=== PATIENT | female | born 1960 | race African-American/Black ===

== ENCOUNTER 2025-05-30 22:29 | Inpatient (IN) | payer MEDICAID ==
[~2025-05-30] VITALS: Ht 160 cm; Wt 59.4 kg
[~2025-05-30 22:29] MED LIST: BENA10TA
[2025-05-30 22:34] VITALS: O2SAT 100
[2025-05-31 00:59] LABS: BASOPHILS % 0.9 % (0.0-2.0); EOSINOPHILS % 1.9 % (0.0-5.0); HEMATOCRIT. 36.9 % (36.0-48.0); HEMOGLOBIN. 12.3 g/dL (12.0-16.0); LYMPHOCYTES % 16.5 % (20.0-50.0); MEAN PLATELET VOLUME 10.5 fl (7.4-10.4); MONOCYTES % 8.3 % (2.0-8.0); NEUTROPHILS % 72.4 % (40.0-76.0); PLATELET 175 x1000/uL (130-400); RED BLOOD CELL COUNT 4.22 mill/uL (4.2-5.4); RED CELL DISTRIBUTION WIDTH 13.7 % (11.6-14.6)
[2025-05-31 01:13] LABS: CREATININE 1.3 mg/dL (0.6-1.0)
[2025-05-31 01:14] LABS: UREA NITROGEN BLOOD 19 mg/dL (9-23)
[2025-05-31 01:15] LABS: ASPARTATE AMINOTRANSFERASE 12 IU/L (<34)
[2025-05-31 01:16] LABS: BILIRUBIN DIRECT 0.1 mg/dL (<=3.0); BILIRUBIN TOTAL 0.4 mg/dL (0.1-1.0); PROTEIN TOTAL 6.9 g/dL (6.0-8.3)
[2025-05-31 02:21] LABS: CLARITY URINE CLOUDY (CLEAR); COLOR URINE DARK YELLOW (YELLOW); GLUCOSE URINE 1+ (NEGATIVE); KETONES URINE 1+ (NEGATIVE); LEUKOCYTE ESTERASE URINE 2+ (NEGATIVE); NITRITE URINE NEGATIVE (NEGATIVE); OCCULT BLOOD URINE NEGATIVE (NEGATIVE); PH URINE 5.5 (4.5-8.0); PROTEIN URINE 1+ (NEGATIVE); SPECIFIC GRAVITY URINE 1.023 (1.005-1.030); UROBILINOGEN URINE 1.0 E.U./dL (0.2-1.0)
[2025-05-31 02:48] LABS: *AMPHETAMINES SCREEN URINE PRESUMPTIVE POSITIVE (NEGATIVE); *BARBITURATES SCREEN URINE NEGATIVE (NEGATIVE); *BENZODIAZEPINES SCREEN URINE NEGATIVE (NEGATIVE); *COCAINE SCREEN URINE NEGATIVE (NEGATIVE); METHADONE URINE SCREEN NEGATIVE (NEGATIVE); OPIATES URINE SCREEN NEGATIVE (NEGATIVE)
[2025-05-31 02:49] LABS: CANNABINOID URINE SCREEN NEGATIVE (NEGATIVE); ECSTASY MDMA SCREEN URINE NEGATIVE (NEGATIVE); PHENCYCLIDINE URINE SCREEN NEGATIVE (NEGATIVE)
[2025-05-31 03:15] VITALS: BP 143/82; PULSE 60; RESP 18; TEMP 36.3068
[2025-05-31 03:17] LABS: ETHANOL BLOOD < 10 mg/dL (<10)
[2025-05-31 04:00] VITALS: BP 157/87; PULSE 61; RESP 17; TEMP 36.2; O2SAT 97
[2025-05-31 04:58] LABS: BACTERIA URINE 2+; SQUAMOUS EPITHELIAL CELL URINE 2+ /lpf (RARE/1+)
[2025-05-31 04:59] LABS: CALCIUM OXALATE CRYSTALS URINE 1+ /lpf; RBC URINE NONE SEEN /hpf (0-2); WBC URINE 50-100 /hpf (0-2); YEAST URINE 2+
[2025-05-31] MEDS ORDERED: CLONIDINE 0.1MG TABLET PO PRN (05:30)
[2025-05-31] MEDS ORDERED: HALOPERIDOL LACTATE 5MG/ML VIAL IM PRN (05:30)
[2025-05-31] MEDS ORDERED: DEXTROSE 50% WATER 50ML SYRINGE IV PRN (05:30)
[2025-05-31] MEDS: BLOOD SUGAR DIAGNOSTIC STRIP TEST SCH (06:40)
[2025-05-31] MEDS: INSULIN LISPRO 100 UNITS/ML SUBCUT SCH (06:48)
[2025-05-31] MEDS ORDERED: MAGNESIUM/ALUMINUM HYDROXIDE/SIMETHICONE 30ML UDC PO PRN (08:15)
[2025-05-31] MEDS ORDERED: HYDROCODONE/ACETAMINOPHEN 5/325MG TABLET PO PRN (08:15)
[2025-05-31] MEDS ORDERED: ACETAMINOPHEN 325MG TABLET PO PRN (08:15)
[2025-05-31] MEDS ORDERED: ONDANSETRON HCL 4MG/2ML INJ IV PRN (08:15)
[2025-05-31] MEDS: PANTOPRAZOLE SODIUM 40 MG/VIAL IV SCH (10:26)
[2025-05-31] MEDS: ENOXAPARIN 40MG/0.4ML SYR SUBCUT SCH (10:26)
[2025-05-31] MEDS: CEFTRIAXONE 1GM/50ML 50 ML IV SCH (10:27)
[2025-05-31] MEDS: SODIUM CHLORIDE 0.9% 1,000 ML IV SCH (10:28)
[2025-05-31] MEDS: MVI, ADULT NO.1 10 ML, FOLIC ACID 1 MG, THIAMINE HCL 100 MG in SODIUM CHLORIDE 0.9% 1,0... IV SCH (10:29)
[2025-05-31] MEDS ORDERED: CEFTRIAXONE 1GM/50ML 50 ML IV SCH (13:15)
[2025-05-31] MEDS: POTASSIUM CHLORIDE 20MEQ TABLET SR PO NR (13:47)
[2025-05-31 16:00] VITALS: BP 188/102; PULSE 64; RESP 17; TEMP 36.2; O2SAT 99
[2025-05-31] MEDS: CLONIDINE 0.1MG TABLET PO PRN (18:01)
[2025-05-31 20:00] VITALS: BP 135/83; PULSE 62; RESP 18; TEMP 36.3; O2SAT 99
[2025-05-31] MEDS ORDERED: ZOLPIDEM TARTRATE 5MG TABLET PO PRN (21:00)
[2025-06-01] VITALS: BP 129/82; PULSE 81; RESP 18; TEMP 36.2; O2SAT 100
[2025-06-01 04:00] VITALS: BP 124/80; PULSE 84; RESP 18; TEMP 36.1; O2SAT 100
[2025-06-01 08:00] VITALS: BP 157/105; PULSE 88; RESP 20; TEMP 36.3; O2SAT 96
[2025-06-01] MEDS: FLUCONAZOLE 100MG TABLET PO SCH (09:24)
[2025-06-01 12:00] VITALS: BP 184/90; PULSE 68; RESP 20; TEMP 36.3; O2SAT 97
[2025-06-01 12:02] LABS: BASOPHILS % 0.2 % (0.0-2.0); EOSINOPHILS % 1.0 % (0.0-5.0); HEMATOCRIT. 37.8 % (36.0-48.0); HEMOGLOBIN. 12.3 g/dL (12.0-16.0); LYMPHOCYTES % 19.8 % (20.0-50.0); MEAN PLATELET VOLUME 10.1 fl (7.4-10.4); MONOCYTES % 6.4 % (2.0-8.0); NEUTROPHILS % 72.6 % (40.0-76.0); PLATELET 173 x1000/uL (130-400); RED BLOOD CELL COUNT 4.33 mill/uL (4.2-5.4); RED CELL DISTRIBUTION WIDTH 13.8 % (11.6-14.6)
[2025-06-01 12:20] LABS: CREATININE 0.7 mg/dL (0.6-1.0); UREA NITROGEN BLOOD 8 mg/dL (9-23)
[2025-06-01 16:00] VITALS: BP 169/84; PULSE 69; RESP 20; TEMP 36.4; O2SAT 100
[2025-06-01 20:00] VITALS: BP 164/94; PULSE 80; RESP 20; TEMP 36.5; O2SAT 100
[2025-06-02] VITALS: BP 176/110; PULSE 74; RESP 20; TEMP 36.5; O2SAT 94
[2025-06-02 04:00] VITALS: BP 134/75; PULSE 66; RESP 20; TEMP 36.4; O2SAT 99
[2025-06-02 06:07] LABS: CHLAMYDIA TRACHOMATIS NAA Negative (Negative); NEISSERIA GONORRHOEAE NAA Negative (Negative)
[2025-06-02 08:00] VITALS: BP 147/97; PULSE 75; RESP 20; TEMP 36.5; O2SAT 99
[2025-06-02] MEDS: FLUCONAZOLE 100MG TABLET PO SCH (08:59)
[2025-06-02] MEDS: PANTOPRAZOLE SODIUM 40 MG/VIAL IV SCH (08:59)
[2025-06-02 12:00] VITALS: BP 121/57; PULSE 57; RESP 18; TEMP 36.6; O2SAT 98
[2025-06-02 16:00] VITALS: BP 119/58; PULSE 59; RESP 19; TEMP 36.7; O2SAT 98
[2025-06-02] MEDS ORDERED: CEFD300C3 MT (16:55)
[2025-06-02] MEDS ORDERED: THIA100T72 MT (16:55)
[2025-06-02 18:21] VITALS: BP 119/58; PULSE 59; RESP 18; TEMP 98.1
[2025-06-02] MEDS ORDERED: CEFTRIAXONE 1GM/50ML 50 ML IV SCH (21:00)
== END 2025-06-02 20:30 | disposition home or self-care (01) | DRG 689 ==
LOC: ER 22:29 → EDBEDREQ 05-31 02:29 → EDBEDREQTM 05-31 02:29 → ENRESERV 05-31 02:36 → 7EST 05-31 04:04
PROVIDERS: ADMIT Internal Medicine; ATTEND Internal Medicine
DX: N39.0 Urinary tract infection, site not specified (principal); G92.8 Other toxic encephalopathy; B48.8 Other specified mycoses; N17.9 Acute kidney failure, unspecified; F03.90 Unspecified dementia, unspecified severity, without behavioral disturbance, psychotic disturbance, mood disturbance, and anxiety; E11.9 Type 2 diabetes mellitus without complications; I10 Essential (primary) hypertension; F20.9 Schizophrenia, unspecified; Z55.6 Problems related to health literacy
CPT/HCPCS: 36415; 71045; 80048; 80076; 80305; 80320; 81003; 82962; 83036; 84443; 85025; 87491; 87591; 93005; 93970; 99285; J0696; J1650; J1815; J2470; J3411; J3490; J7030; G0480